=== PATIENT | female | born 1995 | race Hispanic/Latino ===

== ENCOUNTER 2017-08-31 07:52 | Inpatient (IN) | payer MEDICAID ==
[2017-08-31] MEDS ORDERED: MINERAL OIL PO PRN (09:38)
[2017-08-31] MEDS ORDERED: XYLOCAINE 2% INFILTRATI ONE (09:38)
[2017-08-31] MEDS ORDERED: STADOL IV PRN (09:38)
[2017-08-31] MEDS ORDERED: BRETHINE SUB-Q PRN (09:38)
[2017-08-31] MEDS ORDERED: ePHEDrine SULFATE IV PRN ×2 (09:38→15:45)
[2017-08-31] MEDS ORDERED: BRETHINE IVP PRN (09:38)
--- NOTE | 2017-08-31 09:47 | History and Physical Report ---
History of Present Illness Date of examination: 08/31/17 Date of admission: 08/31/17 09:35 Chief complaint: Contractions History of present illness: 22yo G 2 P 1 0 0 1 here with c/o worsening contractions since 4:30am. She reports positive movements but denies VB or LOF. Her course is complicated by late entry to care, trichomonas (completed treatment; neg NORM), h /o genital herpes (on daily suppresive therapy), vitamin D deficiency, and abnormal pap (LGSIL). She is rubella non-immune. Her GBS was negative. Past History Past Medical History: no pertinent history Past Surgical History: other (cyst removal from chest @ 6 months old) [employer] History: abnormal PAP smear (LGSIL), herpes, trichomonas Family/Genetic History: diabetes, heart disease, hypertension, stroke, other ( hypothyroidism, anxiety disorder, breast cancer) Social history: no significant social history - Obstetrical History Expected Date of Delivery: 08/30/17 Actual Gestation: 40 Week(s) 1 Day(s) : 2 Para: 1 Hx # Term Pregnancies: 0 Number of Pregnancies: 0 Spontaneous Abortions: 0 Induced : 0 Number of Living Children: 1 #1 Infant Gender: Female year: 1,010 (03/12/2012) Birthweight: 3.118 kg Method of Delivery: Vaginal Gestational age at delivery: 41 Complications: none Medications and Allergies Allergies Allergy/AdvReac Type Severity Reaction Status Date / Time No Known Allergies Allergy Verified 08/31/17 09:54 Home Medications Medication Instructions Recorded Confirmed Last Taken Type Vit Calc,Iron,Folic 1 each PO DAILY 08/31/17 08/31/17 08/30/17 22:30 History [ Vitamins] 1 valACYclovir [Valtrex] 500 mg PO DAILY 08/31/17 08/31/17 08/30/17 09:00 History 1 Review of Systems All systems: negative - Vital Signs Vital signs: Vital Signs Pulse BP Pulse Ox 115 H 134/83 97 08/31/17 08:14 08/31/17 08:14 08/31/17 08:14 Temp Pulse Resp BP Pulse Ox 96 H 123/68 96 08/31/17 08:21 08/31/17 08:21 08/31/17 08:19 - Physical Exam Cardiovascular: Regular rate, Normal S1, Normal S2, No murmurs Lungs: Positive: Clear to auscultation, Normal air movement Abdomen: Positive: normal appearance, soft Genitourinary (Female): Positive: normal external genitalia, normal perenium Vulva: both: normal Vagina: Positive: normal moisture Uterus: Positive: normal size, normal contour Anus/Rectum: Positive: normal perianal skin Extremities: Positive: normal Deep Tendon Reflex Grade: Normal +2 - Obstetrical FHR: auscultation normal, category 1 Uterine Contraction Monitor Mode: External Cervical Dilatation: 4 Cervical Effacement Percentage: 80 station: -1 Uterine Contraction Frequency (min): 2-5 Uterine Contraction Pattern: Regular Results Result Diagrams: 08/31/17 09:23 All other labs normal. Assessment and Plan - Patient Problems (1) 40 weeks gestation of Current Visit: Yes Status: Acute (2) Active labor at term Current Visit: Yes Status: Acute Plan to address problem: Admit to L&D with routine labor orders May ambulate prn, if reactive FMS Oxytocin for labor augmentation if no cervical change in 4 hours May get an epidural or IV sedation for pain management Anticipate vaginal delivery
[2017-08-31] MEDS ORDERED: PITOCin/NS 20 UNIT/1000ML DRIP 20 UNITS/1,000 ML BAG IV SCH (10:00)
[2017-08-31 10:11] LABS: Hematocrit 35.5 % (30.3-42.9); Hemoglobin 12.2 gm/dl (10.1-14.3); Mean Corpuscular HGB Conc 35 % (30-34); Mean Corpuscular Hemoglobin 32 pg (28-32); Mean Corpuscular Volume 91 fl (79-97); Platelet Count 268 K/mm3 (140-440); Red Blood Count 3.89 M/mm3 (3.65-5.03); Red Cell Distribution Width 14.2 % (13.2-15.2)
[2017-08-31] MEDS: LACTATED RINGERS 1,000 ML IV SCH ×3 (12:52→16:08)
[2017-08-31] MEDS ORDERED: PITOCin/NS 30 UNIT/500ML 30 UNITS/500 ML BAG IV SCH (13:00)
--- NOTE | 2017-08-31 13:35 | Event Note ---
Date: 08/31/17 S: Pt lying in bed with partner and mom at the bedside. Reports contractions are getting stronger but still tolerable. O: BP 124/80, HR 92, SPO2 100% FHR: baseline 140, moderate variability, + accels, no decels Ctxs: q 2-5 mins, palpate moderate SVE 5/80/-2/intact/vtx A: 22yo G 2 P 1 0 0 1 @ 40 weeks 1 day by LMP Category 1 FHR Active Labor P: Continue routine labor orders Start Oxytocin for labor augmentation May get an epidural or IV pain medicine for pain management Anticipate vaginal delivery
[2017-08-31] MEDS: SUBLIMAZE IV PRN ×2 (13:44→15:29)
[2017-08-31] MEDS ORDERED: ePHEDrine SULFATE ONE (15:37)
[2017-08-31] MEDS ORDERED: NARCAN 2 MG/2 ML IV PRN (15:45)
--- NOTE | 2017-08-31 15:45 | Anesthesia Consultation ---
Anesthesia Consult and Med Hx Date of service: 08/31/17 - Airway Anesthetic Teeth Evaluation: Good ROM Head & Neck: Adequate Mental/Hyoid Distance: Adequate Mallampati Class: Class II Intubation Access Assessment: Probably Good - Pre-Operative Health Status ASA Pre-Surgery Classification: ASA2 Proposed Anesthetic Plan: Epidural, Spinal - Pulmonary Hx Asthma: No COPD: No Hx Pneumonia: No - Cardiovascular System Hx Hypertension: No - Central Nervous System Hx Seizures: No Hx Psychiatric Problems: No - Endocrine Hx Renal Disease: No Hx End Stage Renal Disease: No Hx Hypothyroidism: No Hx Hyperthyroidism: No - Hematic Hx Anemia: No Hx Sickle Cell Disease: No
[2017-08-31] MEDS ORDERED: fentaNYL-BUPIV 2 MCG/ML-0.125% 200 MCG/100 ML BAG EPIDURAL SCH (16:00)
[2017-08-31] MEDS ORDERED: CYTOTEC ONE (17:39)
[2017-08-31] MEDS ORDERED: MILK OF MAGNESIA PO PRN (17:48)
[2017-08-31] MEDS ORDERED: PHENERGAN PO PRN (17:48)
[2017-08-31] MEDS ORDERED: TYLENOL PO PRN (17:48)
[2017-08-31] MEDS ORDERED: DULCOLAX PR PRN (17:48)
[2017-08-31] MEDS ORDERED: BENADRYL PO PRN (17:48)
[2017-08-31] MEDS ORDERED: TUCKS PAD TP PRN (17:48)
[2017-08-31] MEDS ORDERED: LANSINOH TP PRN (17:48)
[2017-08-31] MEDS ORDERED: NORCO 5/325 PO PRN (17:48)
[2017-08-31] MEDS ORDERED: ZOFRAN IV PRN (17:48)
[2017-08-31] MEDS ORDERED: PHENERGAN PR PRN (17:48)
[2017-08-31] MEDS ORDERED: SODIUM CHLORIDE FLUSH SYRINGE 10 ML IV NR (18:00)
--- NOTE | 2017-08-31 18:00 | Procedure Note ---
OB Delivery Note - Delivery Date of Delivery: 08/31/17 (17:29) Surgeon: SIERRA JAQUEZ Estimated blood loss: other (400cc) - Vaginal Delivery presentation: vertex Delivery position: OA Intrapartum events: none Delivery induction: none Delivery augmentation: pitocin Delivery monitor: external FHT, external uterine, internal FHT Route of delivery: (17:29) Delivery placenta: spontaneous (17:36) Delivery cord: 3 umbilical vessels Episiotomy: none Delivery laceration: none Anesthesia: epidural Delivery comments: of a vigorous term female @ 17:29. Baby immediately placed on maternal abdomen, dried and bulbed suctioned by RN. After 3 mins of delayed cord clamping , umbilical cord doubled and cut by FOB. Spontaneous delivery of placenta with mary alice-side presenting @ 17:36 followed by heavy lochia. Fundal massage and IV Pitocin bolus initiated. Fundus F/ML/U-2. Small lochia. Perineum intact. No lacerations noted. Placenta intact; was discarded. Mom and baby in stable condition. - A at 1 minute: 8 at 5 minutes: 9 Infant Gender: Female (6lbs 10oz (2996gm); 19.5in)
[2017-08-31] MEDS: MOTRIN PO SCH ×2 (19:21→23:47)
[2017-09-01] MEDS: MOTRIN PO SCH ×3 (05:19→17:14)
[2017-09-01 05:38] LABS: Hematocrit 31.1 % (30.3-42.9); Hemoglobin 10.6 gm/dl (10.1-14.3)
--- NOTE | 2017-09-01 09:26 | Progress Note ---
Assessment and Plan A: PPD1 s/p Bottlefeeding Doing well Desires discharge home this pm P: Routine PP care Discharge home this pm pending peds Subjective - Subjective Date of service: 09/01/17 Principal diagnosis: S/P Patient reports: appetite normal, voiding normally, pain well controlled, bowel movement, ambulating normally : doing well, bottle feeding Objective - Vital Signs Latest vital signs: Vital Signs Temp Pulse Resp BP BP Pulse Ox 09/01/17 05:19 20 09/01/17 05:18 98.2 F 77 20 113/71 99 09/01/17 00:55 98.4 F 77 20 103/56 97 08/31/17 23:47 20 08/31/17 20:56 98.8 F 91 H 20 126/79 94 08/31/17 19:25 81 133/83 08/31/17 19:06 125 H 37/11 08/31/17 18:20 90 114/66 08/31/17 18:14 93 H 98 08/31/17 18:09 90 99 08/31/17 18:05 91 H 137/81 08/31/17 18:04 92 H 100 08/31/17 17:59 89 99 08/31/17 17:54 89 83 L 08/31/17 17:49 82 99 08/31/17 17:45 43 L 79 L 08/31/17 17:41 86 130/73 08/31/17 17:40 85 134/78 08/31/17 17:35 82 L 08/31/17 17:29 76 80 L 08/31/17 17:18 71 89 08/31/17 17:11 88 128/78 08/31/17 17:09 88 100 08/31/17 17:04 74 100 08/31/17 16:59 79 100 08/31/17 16:54 77 100 08/31/17 16:49 78 99 08/31/17 16:44 79 100 08/31/17 16:42 74 113/64 08/31/17 16:39 78 98 08/31/17 16:34 79 100 08/31/17 16:29 89 99 08/31/17 16:24 88 98 08/31/17 16:19 89 98 08/31/17 16:14 85 98 08/31/17 16:10 88 131/80 02/12/18 16:09 76 97 08/31/17 16:08 72 129/72 08/31/17 16:07 66 135/72 08/31/17 16:06 83 L 08/31/17 16:05 78 158/72 08/31/17 16:04 86 98 08/31/17 16:02 75 114/70 08/31/17 16:01 87 115/69 08/31/17 15:59 95 H 100 08/31/17 15:54 106 H 99 08/31/17 14:14 14 08/31/17 14:13 80 100 08/31/17 14:11 87 124/76 08/31/17 14:08 92 H 99 08/31/17 14:03 91 H 99 08/31/17 13:58 87 97 08/31/17 13:53 69 97 08/31/17 13:48 83 100 08/31/17 13:44 18 08/31/17 13:43 92 H 98 08/31/17 13:38 78 97 08/31/17 13:33 92 H 100 08/31/17 13:28 36 L 85 08/31/17 13:16 86 08/31/17 13:14 83 97 08/31/17 13:09 91 H 96 08/31/17 13:07 91 H 89 08/31/17 13:04 80 96 08/31/17 12:59 93 H 96 08/31/17 12:54 85 96 08/31/17 12:49 84 97 08/31/17 12:47 80 94 08/31/17 12:44 102 H 97 08/31/17 12:39 92 H 96 08/31/17 12:34 84 97 08/31/17 12:29 107 H 96 08/31/17 12:25 98.3 F 85 20 124/80 97 08/31/17 12:24 98 H 97 08/31/17 12:19 98 H 97 08/31/17 12:15 92 H 124/80 08/31/17 10:17 78 22 128/73 98 Intake and Output 08/31/17 09/01/17 09/01/17 23:59 07:59 15:59 Intake Total 291.667 480 Output Total 400 400 Balance -108.333 80 Intake: IV 291.667 Lactated Ringers 1,000 ml 291.667 @ 125 mls/hr IV DIRECT RUBY Rx#:[id number] Intake, Free Water 480 Output: Urine 400 400 Void 400 400 Other: Total, Output Amount 400 400 Estimated Blood Loss 400 - Exam Breasts: Present: normal Cardiovascular: Present: Regular rate, Normal S1, Normal S2, No murmurs Lungs: Present: Clear to auscultation, Normal air movement Abdomen: Present: normal appearance, soft Vulva: both: normal Uterus: Present: firm, fundal height below umbilicus (-1) Extremities: Present: normal Deep Tendon Reflex Grade: Normal +2 - Labs Labs: Abnormal lab results 08/31/17 Range/Units 09:23 MCHC 35 H (30-34) %
--- NOTE | 2017-09-01 09:33 | Discharge Summary ---
Providers - Providers Date of Admission: 08/31/17 09:35 Date of discharge: 09/01/17 (pending Peds) Attending physician: SHAVONNE EAGLE MD Primary care physician: SHAVONNE EAGLE MD Hospitalization Condition: Good Procedures: Hospital course: uneventful Disposition: DC-01 TO HOME OR SELFCARE - Discharge Diagnoses (1) (normal spontaneous vaginal delivery) Status: Acute Core Measure Documentation - Palliative Care Palliative Care/ Comfort Measures: Not Applicable - Core Measures Any of the following diagnoses?: none Exam - Constitutional Vitals: Temp Pulse Resp BP Pulse Ox 98.2 F 77 20 113/71 99 09/01/17 05:18 09/01/17 05:18 09/01/17 05:19 09/01/17 05:18 09/01/17 05:18 General appearance: Present: no acute distress, well-nourished - EENT Eyes: Present: PERRL ENT: hearing intact, clear oral mucosa - Neck Neck: Present: supple, normal ROM - Respiratory Respiratory effort: normal - Cardiovascular Rhythm: regular Heart Sounds: Present: S1 & S2 - Extremities Extremities: pulses symmetrical, No edema - Abdominal General gastrointestinal: Present: soft, non-tender, normal bowel sounds, other (FF@U-2) Female genitourinary: Present: normal, other (Small lochia) - Integumentary Integumentary: Present: clear, warm, dry - Musculoskeletal Musculoskeletal: gait normal, strength equal bilaterally - Psychiatric Psychiatric: appropriate mood/affect, intact judgment & insight, memory intact, cooperative Plan Activity: advance as tolerated Diet: regular Follow up with: SHAVONNE EAGLE MD [Primary Care Provider] - 6 Weeks
[2017-09-01 17:26] VITALS: BP 132/86
[2017-09-01] MEDS ORDERED: M-M-R II VACCINE SUB-Q ONE (17:48)
== END 2017-09-01 19:50 | disposition home or self-care (01) | DRG 774 ==
LOC: TRG 07:52 → LD 09:35 → OB 19:51
PROVIDERS: ADMIT Obstetrics & Gynecology; ATTEND Obstetrics & Gynecology
PROC: 10E0XZZ Delivery of Products of Conception, External Approach (ICD-10-PCS; principal; 2017-08-31)
PROC: 3E0R3BZ Introduction of Anesthetic Agent into Spinal Canal, Percutaneous Approach (ICD-10-PCS; 2017-08-31)
PROC: 00HU33Z Insertion of Infusion Device into Spinal Canal, Percutaneous Approach (ICD-10-PCS; 2017-08-31)
PROC: 3E0234Z Introduction of Serum, Toxoid and Vaccine into Muscle, Percutaneous Approach (ICD-10-PCS; 2017-09-01)
DX: O98.313 Other infections with a predominantly sexual mode of transmission complicating pregnancy, third trimester (principal); Z3A.40 40 weeks gestation of pregnancy; Z37.0 Single live birth; Z23 Encounter for immunization; Z81.8 Family history of other mental and behavioral disorders; Z83.3 Family history of diabetes mellitus; Z82.49 Family history of ischemic heart disease and other diseases of the circulatory system; Z82.3 Family history of stroke; Z80.3 Family history of malignant neoplasm of breast; A59.9 Trichomoniasis, unspecified
CPT/HCPCS: 36415; 59025; 85014; 85018; 85027; 86592; 86850; 86900; 86901; 90707; 99211; G0463; J2590; J3010; J7120

== ENCOUNTER 2021-12-31 06:45 | Inpatient (IN) | payer MEDICAID ==
[2021-12-31] MEDS ORDERED: OXYTOCIN 10 UNIT/1 ML INJ IM ONE (07:23)
[2021-12-31] MEDS ORDERED: miSOPROStol 200 MCG TAB PR ONE (07:24)
[2021-12-31] MEDS ORDERED: METHYLERGONOVINE MALEATE 0.2 MG/ML VIAL IM ONE (07:25)
[2021-12-31] MEDS ORDERED: CARBOPROST TROMETHAMINE 250 MCG/1 ML INJ IM PRN (07:26)
[2021-12-31] MEDS ORDERED: METHYLERGONOVINE MALEATE 0.2 MG/ML VIAL IM PRN (07:26)
[2021-12-31] MEDS ORDERED: MAGNESIUM SULFATE 4 GM/100 ML BAG IV ONE ×2 (07:42→07:53)
[2021-12-31] MEDS ORDERED: LIDOCAINE (2%) 20 MG/1 ML VIAL 20 ML MDV INFILTRATI ONE (07:43)
[2021-12-31] MEDS ORDERED: fentaNYL 100 MCG/2 ML INJ ONE (07:46)
[2021-12-31] MEDS ORDERED: MIDAZOLAM 2 MG/2 ML INJ ONE (07:46)
--- NOTE | 2021-12-31 07:52 | History and Physical Report ---
History of Present Illness Date of examination: 12/31/21 Date of admission: 12/31/21 06:48 Chief complaint: Contractions History of present illness: 26-year-old at 36-1/7 weeks gestation presents to OB triage reporting regular and painful uterine contractions every 3 to 5 minutes. There is good movement. There was some spotting. She had sporadic care. In OB triage the patient was noted be 4 cm dilated. She is admitted to labor and delivery in active labor. Past History Past Medical History: no pertinent history Past Surgical History: no surgical history Family/Genetic History: none Social history: other (She admits to marijuana use during this ) - Obstetrical History Expected Date of Delivery: 01/27/22 Actual Gestation: 36 Week(s) 1 Day(s) : 5 Para: 4 Medications and Allergies Allergies Allergy/AdvReac Type Severity Reaction Status Date / Time No Known Allergies Allergy Verified 08/31/17 09:54 Home Medications Medication Instructions Recorded Confirmed Last Taken Type Vit Calc,Iron,Folic 1 each PO DAILY 08/31/17 09/01/18 09/01/18 History [ Vitamins] valACYclovir [Valtrex] 500 mg PO DAILY 08/31/17 09/01/18 09/01/18 History buPROPion SR [Wellbutrin Sr] 150 mg PO QAM 09/01/18 09/01/18 09/01/18 History Review of Systems All systems: negative - Vital Signs Vital signs: Vital Signs Pulse Pulse Ox 28 L 91 12/31/21 07:37 12/31/21 07:37 Temp Pulse Resp BP Pulse Ox 62 100 12/31/21 07:48 12/31/21 07:48 - Physical Exam Breasts: Positive: normal Cardiovascular: Regular rate Lungs: Positive: Normal air movement Abdomen: Positive: normal appearance Genitourinary (Female): Positive: normal external genitalia, normal perenium Vulva: both: normal Vagina: Positive: normal moisture Uterus: Positive: enlarged Adnexa: both: normal Anus/Rectum: Positive: normal perianal skin Extremities: Positive: normal Deep Tendon Reflex Grade: Normal +2 - Obstetrical FHR: category 1 Uterine Contraction Monitor Mode: External Cervical Dilatation: 4 Cervical Effacement Percentage: 90 station: -3 Uterine Contraction Frequency (min): 3 Uterine Contraction Pattern: Regular Results Result Diagrams: 12/31/21 07:53 12/31/21 07:53 All other labs normal. Assessment and Plan - Patient Problems (1) 36 weeks gestation of Current Visit: Yes Status: Acute Plan to address problem: care sporadic. labs ordered. As this patient is below 37 weeks, IV penicillin as ordered for GBS prophylaxis. (2) labor in third trimester Current Visit: Yes Status: Acute Plan to address problem: This patient is an active labor. Admit to labor and delivery. Expectant management. No tocolysis at this time. Penicillin ordered for GBS prophylaxis. No glucocorticoids at this time. Await OB ultrasound limited for estimated weight and RANDY. (3) Anemia affecting in third trimester Current Visit: Yes Status: Acute Plan to address problem: Predelivery hemoglobin is 8.2. 2 units of packed red blood cells are typed and crossed.
--- NOTE | 2021-12-31 07:52 | Procedure Note ---
OB Delivery Note - Delivery Date of Delivery: 12/31/21 Surgeon: DUGLAS WASHINGTON Estimated blood loss: 500cc - Vaginal Delivery presentation: vertex Delivery position: OA Intrapartum events: no care, labor-<37 weeks, eclampsia, precipitous labor- <3hr Delivery induction: none Delivery augmentation: rupture of membranes Delivery monitor: external FHT, external uterine Route of delivery: Delivery placenta: spontaneous Delivery cord: 3 umbilical vessels Episiotomy: none Delivery laceration: 1st degree, other (Bilateral periurethral) Delivery repair: vicryl Anesthesia: local, other (Monitored anesthesia care with Versed at the bedside) Delivery comments: This patient had no care. She presented to OB triage in active labor. The patient was taken to labor and delivery. Cervical exam was complete/1 high percent/+2. Prior to delivery, the patient's blood pressure was >=140/90. The patient was not cooperative, and she pulled out her IV. The patient pushed and produced a liveborn infant. Immediately after delivery, the patient was not responsive to commands and she was arousable to sternal rub. Clinically, I was suspicious for a petit mall seizure consistent with eclampsia. Cord was clamped and cut, and was handed off to waiting team. Placenta was spontaneously expelled. Intravenous magnesium was ordered (6 g load, 2 g/hour continuous x24 hours) for seizure prophylaxis. I placed a Dunn catheter into the patient's bladder. Preeclampsia labs were ordered. Subsequently, the patient was very arousable. However, she continues to be noncooperative. The anesthesia team was consulted for pain control and anxiolysis. Monitored anesthesia care ensued with intravenous Versed. Lidocaine was infiltrated at the laceration sites locally. The bilateral periurethral lacerations and first-degree perineal laceration were all repaired with 3-0 Vicryl in a running fashion with excellent hemostasis. The uterus was expelled of all clots and debris. However, I was clinically concerned that there may be a reaccumulation of blood clot. As such I ordered intramuscular Hemabate along with sublingual Cytotec. Intravenous magnesium continued. Magnesium level will be drawn at noon to ensure therapeutic range. Predelivery hemoglobin was 8.2; therefore, 2 units of packed red blood cells were typed and crossed for transfusion as the estimated blood loss was 500 mL. - A at 1 minute: 8 at 5 minutes: 8 Gender: Female (NICU in attendance)
[2021-12-31] MEDS ORDERED: LACTATED RINGERS 1,000 ML ONE (07:53)
[2021-12-31] MEDS ORDERED: ePHEDrine SULFATE 50 MG/1 ML INJ IV PRN (08:00)
[2021-12-31] MEDS ORDERED: MAGNESIUM SULFATE 40GM/1000ML 40 GM/1,000 ML BAG IV SCH (08:00)
[2021-12-31] MEDS ORDERED: fentaNYL 100 MCG/2 ML INJ IV PRN (08:00)
[2021-12-31] MEDS ORDERED: LACTATED RINGERS 1,000 ML IV SCH (08:00)
[2021-12-31] MEDS ORDERED: BENZOCAINE/MENTHOL 20/0.5% TOP SPRAY 56 GM TP PRN (08:00)
[2021-12-31] MEDS ORDERED: HYDROcodone/ACETAMINOPHEN 5-325 MG TAB PO PRN (08:00)
[2021-12-31] MEDS ORDERED: BUTORPHANOL 2 MG/1 ML INJ IV PRN (08:00)
[2021-12-31] MEDS ORDERED: ACETAMINOPHEN 325 MG TAB PO PRN ×2 (08:00)
[2021-12-31] MEDS ORDERED: OXYTOCIN DRIP 30 UNITS/500 ML BAG IV SCH (08:00)
[2021-12-31] MEDS ORDERED: PENICILLIN G POTASSIUM 5 MIL.UNITS in SODIUM CHLORIDE 0.9% 50 ML IV ONE (08:00)
[2021-12-31] MEDS ORDERED: LANOLIN/ZINC/DIMETHICONE (LANSINOH) 7 GM TP PRN (08:00)
[2021-12-31] MEDS ORDERED: WITCH HAZEL/ GLYCERIN PAD TP PRN (08:00)
[2021-12-31 08:26] LABS: Hematocrit 26.5 % (30.3-42.9); Hemoglobin 8.2 gm/dl (10.1-14.3); Mean Corpuscular HGB Conc 31 % (30-34); Mean Corpuscular Volume 74 fl (79-97); Platelet Count 293 K/mm3 (140-440); Red Blood Count 3.59 M/mm3 (3.65-5.03); Red Cell Distribution Width 17.8 % (13.2-15.2)
[2021-12-31] MEDS ORDERED: MAGNESIUM SULFATE 2 GM/50 ML BAG IV ONE (08:30)
[2021-12-31] MEDS ORDERED: CARBOPROST TROMETHAMINE 250 MCG/1 ML INJ IM ONE (08:30)
[2021-12-31] MEDS ORDERED: SODIUM CHLORIDE 0.9% 500 ML 500 ML IV NR (08:37)
[2021-12-31 08:46] LABS: Alanine Aminotransferase 13 units/L (7-56); Albumin 3.1 g/dL (3.9-5); Blood Urea Nitrogen 10 mg/dL (7-17); Calcium 8.8 mg/dL (8.4-10.2); Hemolysis Index 9; Uric Acid 3.8 mg/dL (3.5-7.6)
[2021-12-31 08:47] LABS: BUN/Creatinine Ratio 20
[2021-12-31] MEDS ORDERED: miSOPROStol 200 MCG TAB PO STA (09:01)
[2021-12-31] MEDS ORDERED: ONDANSETRON 4 MG/2 ML INJ ONE (09:22)
[2021-12-31] MEDS ORDERED: SODIUM CHLORIDE 0.9% 1000 ML 1,000 ML ONE (09:37)
[2021-12-31] MEDS ORDERED: miSOPROStol 200 MCG TAB ONE (10:28)
[2021-12-31] MEDS ORDERED: miSOPROStol 200 MCG TAB PR NR (10:33)
--- NOTE | 2021-12-31 10:37 | Event Note ---
Date: 12/31/21 pt evaluated uterine fundus not firm, lower uterine segment with clots; cervix 5cm dilated and 50cc clot removed and pt told me to stop but accepted uterotonic. pt already received oral 400mcg by Dr. Curry, therefore only 600mcg per rectum given by me. Pt is receiving #1 PRBC and vitals wnl. Plan of care discussed for pt to receive 2units, pt shivering a lot and afebrile. Will repeat cbc 4hrs post #2 transfusion.
[2021-12-31 10:51] LABS: Bilirubin,Urine NEG (Negative); Blood,Urine SM (Negative); Color,Urine Yellow (Yellow); Urobilinogen,Urine < 2.0 mg/dL (<2.0)
[2021-12-31 10:53] LABS: Bacteria,Urine 3+ /HPF (Negative); Mucus,Urine 2+ /HPF
[2021-12-31 10:57] LABS: Cocaine Screen,Urine Negative; Methadone Screen,Urine Negative; Opiate Screen,Urine Negative
[2021-12-31 12:00] LABS: Amphetamine Screen,Urine Positive; Benzodiazepines Screen,Urine Positive; Cannabinoid Screen,Urine Positive
[2021-12-31] MEDS ORDERED: PENICILLIN G POTASSIUM 2.5 MIL.UNITS in SODIUM CHLORIDE 0.9% 50 ML IV SCH (12:00)
[2021-12-31 14:31] LABS: Creatinine,Urine 128.7 mg/dL (0.1-20.0)
[2021-12-31 16:29] LABS: Hematocrit 28.2 % (30.3-42.9); Hemoglobin 9.2 gm/dl (10.1-14.3)
--- NOTE | 2021-12-31 21:40 | Anesthesia Day of Surgery ---
Anesthesia Day of Surgery - Day of Surgery Patient Examined: Yes Patient H&P Reviewed: Yes Patient is NPO: Yes
--- NOTE | 2021-12-31 21:40 | Anesthesia Consultation ---
Anesthesia Consult and Med Hx Date of service: 12/31/21 - Airway Anesthetic Teeth Evaluation: Poor ROM Head & Neck: Adequate Mental/Hyoid Distance: Adequate Mallampati Class: Class II Intubation Access Assessment: Good - Pulmonary Exam CTA: Yes - Cardiac Exam Cardiac Exam: RRR - Pre-Operative Health Status ASA Pre-Surgery Classification: ASA2 Proposed Anesthetic Plan: MAC - Pulmonary Hx Asthma: No COPD: No Hx Pneumonia: No - Cardiovascular System Hx Hypertension: No - Central Nervous System Hx Seizures: No Hx Psychiatric Problems: No - Endocrine Hx Renal Disease: No Hx End Stage Renal Disease: No Hx Hypothyroidism: No Hx Hyperthyroidism: No - Hematic Hx Anemia: No Hx Sickle Cell Disease: No - Other Systems Hx Alcohol Use: No Hx Obesity: Yes
--- NOTE | 2022-01-01 00:29 | Event Note ---
Date: 12/31/21 Urine Protein to Creatinine Ratio (UPCR)= 0.50. There is significant proteinuria. Estimated 24 hour urine protein= 637 mg
[2022-01-01] MEDS ORDERED: LACTATED RINGERS 1,000 ML ONE (05:43)
--- NOTE | 2022-01-01 07:35 | Post Anesthesia Evaluation ---
- Post Anesthesia Evaluation Patient Participated: Yes Airway Patent: Yes Stable Respiratory Function: Yes Nausea/Vomiting: No Temp > 96.8F: Yes Pain Manageable: Yes Adequeate Hydration: Yes Anesthesia Complications: No Block Receding Appropriately: Yes Patient on Ventilator: No
[2022-01-01 07:47] LABS: Hematocrit 25.6 % (30.3-42.9); Hemoglobin 8.4 gm/dl (10.1-14.3); Mean Corpuscular HGB Conc 33 % (30-34); Mean Corpuscular Volume 76 fl (79-97); Platelet Count 256 K/mm3 (140-440); Red Blood Count 3.36 M/mm3 (3.65-5.03); Red Cell Distribution Width 19.7 % (13.2-15.2)
[2022-01-01] MEDS ORDERED: IBUPROFEN 600 MG TAB PO SCH (12:00)
[2022-01-01 18:18] VITALS: BP 124/64
[2022-01-01] MEDS ORDERED: medroxyPROGESTERone ACETATE 150 MG/ML SYRINGE IM ONE (19:03)
--- NOTE | 2022-01-01 19:03 | Discharge Summary ---
Providers - Providers Date of Admission: 12/31/21 06:48 Date of discharge: 01/01/22 Attending physician: DUGLAS WASHINGTON MD 12/31/21 13:12 Consult to Case Management [CONS] Routine Services Needed at Discharge: Other Notified:: Yes Phone number called:: [phone] Comment:: No PNC, UDS +THC, amphetamines, benzos Primary care physician: DUGLAS WASHINGTON MD Hospitalization Reason for admission: active labor, IUP - Delivery: Episiotomy: none Laceration: 1st degree Other procedures: none complications: none Discharge diagnosis: delivery baby: female Hospital course: delivery uncomplicated and lacerations repaired. pt given mag sulfate x24hrs and transferred to today and pt states she wants to go home today. Pt had no complaints and BP wnl on no meds. Depo provera to be given prior to discharge per pt request Condition at discharge: Good Disposition: 01 HOME / SELF CARE / HOMELESS Plan - Provider Discharge Summary Additional instructions: [] Smoking cessation referral if applicable(refer to patient education folder for contact #) [] Refer to [facility] Booklet Call your doctor immediately for: * Fever > 100.5 * Heavy vaginal bleeding ( >1 pad per hour) * Severe persistent headache * Shortness of breath * Reddened, hot, painful area to leg or breast * Drainage or odor from incision. * Keep incision clean and dry at all times and follow doctor's instructions regarding bathing/showering - Follow up plan Follow up: DUGLAS WASHINGTON MD [Primary Care Provider] - 6 Weeks Forms: [facility] Discharge Summary
--- NOTE | 2022-01-01 19:03 | Progress Note ---
Assessment and Plan PPD#1 with preeclampsia and BP wnl. 1. Discharge home and follow up clinic in 1wk for BP check 2. Depo contraception prior to discharge All questions encouraged and answered Subjective Date of service: 01/01/22 Principal diagnosis: PPD#1 with preclampsia and BP wnl on no meds Interval history: pt has no complaints and desires to go home now. pt states she has to go home and take care of her child. Pt denies headache. Vag bleed small and denies pelvic pain. pt desires depo contraception prior to discharge Objective - Constitutional Vitals: Vital Signs - 12hr 01/01/22 01/01/22 01/01/22 07:02 07:07 07:12 Temperature Pulse Rate 65 66 68 Respiratory Rate Blood Pressure Blood Pressure [Left] O2 Sat by Pulse 99 99 100 Oximetry O2 Sat by Pulse Oximetry [ Anterior Bilateral] 01/01/22 01/01/22 01/01/22 07:13 07:17 07:22 Temperature Pulse Rate 73 58 L 61 Respiratory Rate Blood Pressure Blood Pressure [Left] O2 Sat by Pulse 91 100 100 Oximetry O2 Sat by Pulse Oximetry [ Anterior Bilateral] 01/01/22 01/01/22 01/01/22 07:27 07:32 07:37 Temperature Pulse Rate 63 71 65 Respiratory Rate Blood Pressure Blood Pressure [Left] O2 Sat by Pulse 100 100 100 Oximetry O2 Sat by Pulse Oximetry [ Anterior Bilateral] 01/01/22 01/01/22 01/01/22 07:42 07:47 07:52 Temperature Pulse Rate 59 L 62 60 Respiratory Rate Blood Pressure Blood Pressure [Left] O2 Sat by Pulse 100 99 100 Oximetry O2 Sat by Pulse Oximetry [ Anterior Bilateral] 01/01/22 01/01/22 01/01/22 07:57 08:02 08:07 Temperature Pulse Rate 66 70 73 Respiratory Rate Blood Pressure Blood Pressure [Left] O2 Sat by Pulse 99 100 100 Oximetry O2 Sat by Pulse Oximetry [ Anterior Bilateral] 01/01/22 01/01/22 01/01/22 08:12 08:15 08:17 Temperature Pulse Rate 67 62 Respiratory Rate Blood Pressure Blood Pressure [Left] O2 Sat by Pulse 100 82 L 100 Oximetry O2 Sat by Pulse Oximetry [ Anterior Bilateral] 01/01/22 01/01/22 01/01/22 08:22 08:27 08:30 Temperature Pulse Rate 74 66 77 Respiratory Rate Blood Pressure Blood Pressure [Left] O2 Sat by Pulse 100 100 79 L Oximetry O2 Sat by Pulse Oximetry [ Anterior Bilateral] 01/01/22 01/01/22 01/01/22 08:32 08:34 08:53 Temperature 98 F Pulse Rate 80 73 69 Respiratory 20 Rate Blood Pressure 111/70 Blood Pressure 115/79 [Left] O2 Sat by Pulse 100 98 Oximetry O2 Sat by Pulse 98 Oximetry [ Anterior Bilateral] 01/01/22 01/01/22 01/01/22 13:00 16:15 18:17 Temperature 98 F 97.9 F 98.2 F Pulse Rate 75 87 79 Respiratory 20 20 20 Rate Blood Pressure Blood Pressure 103/64 135/87 124/64 [Left] O2 Sat by Pulse 98 99 99 Oximetry O2 Sat by Pulse Oximetry [ Anterior Bilateral] General appearance: Present: no acute distress - Neck Neck: normal ROM - Respiratory Respiratory effort: normal - Breasts Breasts: deferred - Cardiovascular Rhythm: regular Extremities: No edema - Gastrointestinal General gastrointestinal: Present: soft, non-tender - Genitourinary Female genitourinary: other (Fundus firm 3cm below the umbilicus; Lochia small on pad) - Neurologic Neurologic: moves all extremities - Psychiatric Psychiatric: cooperative - Labs CBC & Chem 7: 01/01/22 07:08 12/31/21 07:53 Labs: Abnormal lab results 12/31/21 12/31/21 01/01/22 Range/Units 08:02 20:12 07:08 RBC 3.36 L (3.65-5.03) M/mm3 Hgb 8.4 L (10.1-14.3) gm/dl Hct 25.6 L (30.3-42.9) % MCV 76 L (79-97) fl MCH 25 L (28-32) pg RDW 19.7 H (13.2-15.2) % Magnesium 4.70 H (1.7-2.3) mg/dL Crossmatch See Detail 01/01/22 Range/Units 07:08 RBC (3.65-5.03) M/mm3 Hgb (10.1-14.3) gm/dl Hct (30.3-42.9) % MCV (79-97) fl MCH (28-32) pg RDW (13.2-15.2) % Magnesium 5.30 H (1.7-2.3) mg/dL Crossmatch Medications & Allergies - Medications Allergies/Adverse Reactions: Allergies No Known Allergies Allergy (Verified 08/31/17 09:54) Home Medications: Home Medications Medication Instructions Recorded Confirmed Last Taken Type No Known Home Medications [No 12/31/21 12/31/21 Unknown History Reported Home Medications] Active Medications: Generic Name Dose Route Start Last Admin Trade Name Freq PRN Reason Stop Dose Admin Acetaminophen 650 mg 12/31/21 08:00 Acetaminophen 325 Mg Tab PO Q4H PRN Pain MILD(1-3)/Fever >100.5/JOHN Hydrocodone Bitart/Acetaminophen 2 each 12/31/21 08:00 12/31/21 21:12 Hydrocodone/Acetaminophen 5-325 Mg Tab PO 2 each Q6H PRN Administration Pain, Moderate (4-6) Benzocaine/Menthol 1 spray 12/31/21 08:00 01/01/22 09:57 Benzocaine/Menthol 20/0.5% Top [place] 56 Gm TP 1 spray PRN PRN Administration Episiotomy Pain Ibuprofen 600 mg 01/01/22 12:00 01/01/22 10:00 Ibuprofen 600 Mg Tab PO 600 mg Q6HR RUBY Administration Multi-Ingredient Ointment 1 applic 12/31/21 08:00 Lanolin/Zinc/Dimethicone (Lansinoh) 7 Gm TP PRN PRN Sore Nipples Sodium Chloride 10 ml 12/31/21 08:00 Sodium Chloride 0.9% 10 Ml Flush Syringe IV 01/12/22 07:59 PRN NR Witch Kiara/Glycerin 1 each 12/31/21 08:00 01/01/22 09:57 Witch Kiara/ Glycerin Pad TP 1 each PRN PRN Administration Hemorrhoid/cleansing/soothing
== END 2022-01-01 20:20 | disposition home or self-care (01) | DRG 775 ==
LOC: TRG 06:45 → LD 06:48 → OB 01-01 08:47
PROVIDERS: ADMIT Obstetrics & Gynecology Gynecology; ATTEND Obstetrics & Gynecology Gynecology
PROC: 10E0XZZ Delivery of Products of Conception, External Approach (ICD-10-PCS; principal; 2021-12-31)
PROC: 0HQ9XZZ Repair Perineum Skin, External Approach (ICD-10-PCS; 2021-12-31)
PROC: 0UQMXZZ Repair Vulva, External Approach (ICD-10-PCS; 2021-12-31)
DX: O60.14X0 Preterm labor third trimester with preterm delivery third trimester, not applicable or unspecified (principal); Z20.822 Contact with and (suspected) exposure to COVID-19; O14.94 Unspecified pre-eclampsia, complicating childbirth; O99.02 Anemia complicating childbirth; O70.0 First degree perineal laceration during delivery; O71.82 Other specified trauma to perineum and vulva; O62.3 Precipitate labor; O99.214 Obesity complicating childbirth; Z3A.36 36 weeks gestation of pregnancy; Z37.0 Single live birth
CPT/HCPCS: 36415; 80053; 80307; 81001; 82570; 83615; 83735; 84156; 84550; 85014; 85018; 85027; 86592; 86706; 86762; 86850; 86900; 86901; 86920; 87806; 88307; G0378; J3490; J1050; J2250; J2405; J3010; J3475; P9016; U0003